=== PATIENT | male | born 1980 | race Hispanic/Latino ===

== ENCOUNTER 2023-01-10 07:43 | Inpatient (IN) | payer OTHER ==
[~2023-01-10] VITALS: Ht 162.6 cm; Wt 82.1 kg
[2023-01-10] VITALS (13 sets, daily range): BP systolic 110–143; BP diastolic 53–84
[2023-01-10] MEDS ORDERED: FAMOTIDINE 20MG VIAL IV ONE (08:00)
[2023-01-10] MEDS ORDERED: 0.9%NACL 1000ML 1,000 ML IV SCH ×2 (08:00→10:00)
[2023-01-10] MEDS ORDERED: ONDANSETRON 4MG INJ IVP ONE (08:00)
[2023-01-10 08:15] LABS: ABG BASE EXCESS -20.8 mmol/L (-2.0-3.0); ABG HCO3 4.7 mmol/L (21.0-28.0); ABG OXYGEN SATURATION 98.1 % (95.0-99.0); ABG PCO2 < 15 mmHg (35-48)
[2023-01-10 08:36] LABS: BASOPHILS % (AUTO) 0.4 % (0.0-5.0); EOSINOPHILS % (AUTO) 0.9 % (0.0-8.0); HEMATOCRIT 50.5 % (42-54); LYMPHOCYTES % (AUTO) 5.6 % (21.0-51.0); MEAN CORPUSCULAR HEMOGLOBIN 31.4 pg (27.0-33.0); MEAN CORPUSCULAR HGB CONC 34.3 g/dL (32.0-36.0); MEAN CORPUSCULAR VOLUME 91.7 fL (79-99); MONOCYTES % (AUTO) 4.1 % (3.0-13.0); NEUTROPHILS % (AUTO) 87.8 % (40.0-77.0); PLATELET COUNT (AUTO) 435 K/uL (130-400); RED BLOOD CELL COUNT(AUTO) 5.51 MIL/uL (4.50-6.20); RED CELL DISTRIBUTION WIDTH 12.7 % (11.0-15.5); WHITE BLOOD COUNT (AUTO) 14.4 K/uL (4.8-10.8)
[2023-01-10 08:53] LABS: ALANINE AMINOTRANSFERASE 33 U/L (12-78); ALBUMIN 4.3 g/dL (3.5-5.0); ASPARTATE AMINOTRANSFERASE 14 U/L (10-37); CREATINE KINASE, TOTAL 82 U/L (21-232); CREATININE 3.1 mg/dL (0.5-1.5); GLOMERULAR FILTR. RATE CALC 25 mL/min (>90); POTASSIUM 4.6 mmol/L (3.5-5.1); SODIUM SERUM 129 mmol/L (136-145); TOTAL PROTEIN, SERUM 8.3 g/dL (6.0-8.3); UREA NITROGEN, BLOOD 33 mg/dL (7-18)
[2023-01-10 08:59] LABS: CARBON DIOXIDE 10 mmol/L (21-32); CHLORIDE 78 mmol/L (101-111)
[2023-01-10 09:15] LABS: GLUCOSE,RANDOM 811 mg/dL (70-105)
[2023-01-10 09:27] LABS: AMPHET/METH SCREEN,URINE NEGATIVE (NEGATIVE); BARBITURATE SCREEN, URINE NEGATIVE (NEGATIVE); BENZODIAZEPINES SCREEN,URINE NEGATIVE (NEGATIVE); CANNABINOID SCREEN,URINE POSITIVE (NEGATIVE); COCAINE SCREEN,URINE NEGATIVE (NEGATIVE); OPIATE SCREEN,URINE NEGATIVE (NEGATIVE); PHENCYCLIDINE SCREEN,URINE NEGATIVE (NEGATIVE)
[2023-01-10] MEDS ORDERED: INSULIN REGULAR, HUMAN 3ML 100 UNIT in 0.9%NACL 100ML 99 ML IV PRN ×2 (09:30)
[2023-01-10 09:46] LABS: APPEARANCE,URINE CLEAR (CLEAR); BILIRUBIN,URINE NEGATIVE (NEGATIVE); COLOR,URINE LIGHT-YELLOW (YELLOW); GLUCOSE, URINE (UA) >=1000 mg/dL (NEGATIVE); KETONES,URINE 150 mg/dL (NEGATIVE); LEUKOCYTE ESTERASE ,URINE NEGATIVE Leu/uL (NEGATIVE); NITRATE,URINE NEGATIVE (NEGATIVE); PROTEIN,URINE 20 mg/dL (NEGATIVE); UROBILINOGEN,URINE 0.2 mg/dL (0.2-1.0)
[2023-01-10 09:51] LABS: MUCUS,URINE RARE LPF (None Seen); OTHER CASTS, URINE 3 /LPF (None Seen); SQUAMOUS EPITHELIAL CELL,UR RARE /HPF (0-2)
[2023-01-10] MEDS ORDERED: KETOROLAC 15MG/ML VIAL (15MG/ML) IV PRN (10:00)
[2023-01-10] MEDS ORDERED: MAGNESIUM 2GM PREMIX 50ML 50 ML IV SCH (10:00)
[2023-01-10] MEDS ORDERED: MORPHINE 2 MG SYG IVP PRN (10:00)
[2023-01-10] MEDS ORDERED: ONDANSETRON 4MG INJ IVP PRN (10:00)
[2023-01-10 10:15] LABS: CREATININE 2.5 mg/dL (0.5-1.5); POTASSIUM 4.3 mmol/L (3.5-5.1)
[2023-01-10] MEDS: INSULIN GLARGINE 100 UNITS/ML 10 ML VIAL SQ SCH ×2 (10:55→20:05)
[2023-01-10 14:21] LABS: CREATININE 2.7 mg/dL (0.5-1.5); POTASSIUM 3.3 mmol/L (3.5-5.1)
[2023-01-10] MEDS ORDERED: PHARMACY COMMUNICATION MISC SCH (16:00)
[2023-01-10] MEDS: INSULIN REGULAR, HUMAN 3ML 100 UNIT in 0.9%NACL 100ML 100 ML IV SCH ×2 (17:44)
[2023-01-10 18:04] LABS: CREATININE 2.2 mg/dL (0.5-1.5)
[2023-01-10 18:12] LABS: POTASSIUM 2.7 mmol/L (3.5-5.1)
[2023-01-10] MEDS ORDERED: KCL 20 MEQ ERTAB PO SCH (18:30)
[2023-01-10] MEDS: D5W-1/2 NS/20MEQ KCL 1,000 ML IV SCH ×2 (18:36→20:00)
[2023-01-10] MEDS: POTASSIUM CHLORIDE 10MEQ/100ML 100 ML IV PRN ×2 (20:00→21:54)
[2023-01-10 23:22] LABS: MAGNESIUM 2.1 mg/dL (1.80-2.40)
[2023-01-10 23:51] LABS: CREATININE 1.9 mg/dL (0.5-1.5); POTASSIUM 4.4 mmol/L (3.5-5.1)
[2023-01-10] MEDS ORDERED: NS-20 MEQ KCL 1000ML 1,000 ML IV ONE (23:53)
[2023-01-11] VITALS (24 sets, daily range): BP systolic 120–175; BP diastolic 55–84
[2023-01-11] MEDS: D5W-1/2 NS/20MEQ KCL 1,000 ML IV SCH ×2 (02:07→08:01)
[2023-01-11] MEDS: INSULIN REGULAR, HUMAN 3ML 100 UNIT in 0.9%NACL 100ML 100 ML IV SCH ×2 (03:33)
[2023-01-11 05:01] LABS: CREATININE 1.8 mg/dL (0.5-1.5); MAGNESIUM 2.4 mg/dL (1.80-2.40); POTASSIUM 3.8 mmol/L (3.5-5.1)
[2023-01-11] MEDS: INSULIN GLARGINE 100 UNITS/ML 10 ML VIAL SQ SCH ×2 (08:00→21:08)
[2023-01-11] MEDS: ENOXAPARIN SODIUM 40 MG/0.4 ML SYRINGE SQ SCH (08:01)
[2023-01-11] MEDS: LACTATED RINGERS 1000ML IV SCH (08:02)
[2023-01-11 10:03] LABS: CREATININE 1.4 mg/dL (0.5-1.5); POTASSIUM 3.5 mmol/L (3.5-5.1)
[2023-01-11] MEDS ORDERED: LACTATED RINGERS 1000ML IV ONE (10:30)
[2023-01-11] MEDS: INSULIN HUMULIN R 100 UNIT/ML 3ML SQ SCH ×3 (12:18→21:07)
[2023-01-11] MEDS: 0.9%NACL 1000ML 1,000 ML IV SCH ×2 (12:19→19:50)
[2023-01-12] VITALS: BP_SYST 126; BP_SYST 129; BP_DIAS 63; BP_DIAS 75
[2023-01-12] MEDS: 0.9%NACL 1000ML 1,000 ML IV SCH ×4 (02:10→22:53)
[2023-01-12] MEDS: INSULIN HUMULIN R 100 UNIT/ML 3ML SQ SCH ×4 (06:33→22:56)
[2023-01-12 07:30] VITALS: BP 139/93
[2023-01-12] MEDS: LACTATED RINGERS 1000ML IV SCH ×2 (08:00→21:00)
[2023-01-12] MEDS: ENOXAPARIN SODIUM 40 MG/0.4 ML SYRINGE SQ SCH (08:14)
[2023-01-12 08:51] LABS: POTASSIUM 2.8 mmol/L (3.5-5.1)
[2023-01-12] MEDS ORDERED: POTASSIUM CHLORIDE 10% ELIXIR 20 MEQ/15 ML UDCUP PO PRN (09:30)
[2023-01-12] MEDS ORDERED: POTASSIUM CHLORIDE 20MEQ/100ML 100 ML IV PRN (09:30)
[2023-01-12] MEDS ORDERED: LIDOCAINE HCL-MPF 1% 2ML VIAL IV PRN (09:30)
[2023-01-12] MEDS ORDERED: KCL 20 MEQ ERTAB PO ONE (09:43)
[2023-01-12] MEDS: KCL 20 MEQ ERTAB PO PRN ×4 (09:57→15:07)
[2023-01-12 11:22] VITALS: BP 131/77
[2023-01-12 15:30] VITALS: BP 141/80
[2023-01-12] MEDS: INSULIN HUMULIN 70/30 100 UNIT/ML 3ML SQ SCH (16:43)
[2023-01-12 19:00] VITALS: BP 124/75
[2023-01-13] VITALS: BP 137/78
[2023-01-13] MEDS: 0.9%NACL 1000ML 1,000 ML IV SCH ×4 (03:50→21:12)
[2023-01-13 04:00] VITALS: BP 142/75
[2023-01-13] MEDS: INSULIN HUMULIN R 100 UNIT/ML 3ML SQ SCH ×4 (06:29→20:19)
[2023-01-13] MEDS: INSULIN HUMULIN 70/30 100 UNIT/ML 3ML SQ SCH ×2 (06:49→16:21)
[2023-01-13 08:00] VITALS: BP 122/80
[2023-01-13] MEDS: ENOXAPARIN SODIUM 40 MG/0.4 ML SYRINGE SQ SCH (09:00)
[2023-01-13 10:14] LABS: CREATININE 0.8 mg/dL (0.5-1.5); POTASSIUM 3.1 mmol/L (3.5-5.1)
[2023-01-13] MEDS: KCL 20 MEQ ERTAB PO PRN ×3 (10:41→16:33)
[2023-01-13 12:00] VITALS: BP 134/81
[2023-01-13 16:00] VITALS: BP 126/84
[2023-01-13 20:06] VITALS: BP 133/77
[2023-01-14 00:10] VITALS: BP 126/76
[2023-01-14 03:59] VITALS: BP 149/87
[2023-01-14] MEDS: 0.9%NACL 1000ML 1,000 ML IV SCH (04:40)
[2023-01-14 05:48] LABS: BASOPHILS % (AUTO) 0.3 % (0.0-5.0); EOSINOPHILS % (AUTO) 0.5 % (0.0-8.0); HEMATOCRIT 31.7 % (42-54); LYMPHOCYTES % (AUTO) 19.5 % (21.0-51.0); MEAN CORPUSCULAR HEMOGLOBIN 31.9 pg (27.0-33.0); MEAN CORPUSCULAR HGB CONC 36.6 g/dL (32.0-36.0); MEAN CORPUSCULAR VOLUME 87.1 fL (79-99); MONOCYTES % (AUTO) 10.5 % (3.0-13.0); NEUTROPHILS % (AUTO) 67.9 % (40.0-77.0); NUCLEATED RED BLOOD CELLS 0.5 % (0.0-0.19); PLATELET COUNT (AUTO) 181 K/uL (130-400); RED BLOOD CELL COUNT(AUTO) 3.64 MIL/uL (4.50-6.20); RED CELL DISTRIBUTION WIDTH 12.9 % (11.0-15.5); WHITE BLOOD COUNT (AUTO) 10.7 K/uL (4.8-10.8)
[2023-01-14 06:01] LABS: CREATININE 0.8 mg/dL (0.5-1.5); PHOSPHORUS 2.7 mg/dL (2.5-4.9); POTASSIUM 3.5 mmol/L (3.5-5.1)
[2023-01-14] MEDS: KCL 20 MEQ ERTAB PO PRN ×2 (06:23→09:26)
[2023-01-14] MEDS: INSULIN HUMULIN 70/30 100 UNIT/ML 3ML SQ SCH (06:29)
[2023-01-14] MEDS: INSULIN HUMULIN R 100 UNIT/ML 3ML SQ SCH (06:29)
[2023-01-14 08:00] VITALS: BP 136/82
[2023-01-14] MEDS: ENOXAPARIN SODIUM 40 MG/0.4 ML SYRINGE SQ SCH ×2 (09:00→09:26)
[2023-01-14] MEDS ORDERED: HUM10VIA SQ (13:06)
== END 2023-01-14 12:50 | disposition home or self-care (01) | DRG 638 ==
LOC: EDH 07:43 → EDHIP 07:44 → 2BH 11:55 → 3AH 01-11 11:23 → 4AH 01-13 18:26
PROVIDERS: ADMIT Internal Medicine; ATTEND Internal Medicine
DX: E11.10 Type 2 diabetes mellitus with ketoacidosis without coma (principal); N17.9 Acute kidney failure, unspecified; K76.0 Fatty (change of) liver, not elsewhere classified; F12.90 Cannabis use, unspecified, uncomplicated; K57.90 Diverticulosis of intestine, part unspecified, without perforation or abscess without bleeding; D72.829 Elevated white blood cell count, unspecified; E66.09 Other obesity due to excess calories; Z79.84 Long term (current) use of oral hypoglycemic drugs; Z91.199 Patient's noncompliance with other medical treatment and regimen due to unspecified reason; Z99.2 Dependence on renal dialysis; Z68.31 Body mass index [BMI] 31.0-31.9, adult
CPT/HCPCS: 36415; 36600; 71045; 74176; 80048; 80053; 80305; 81001; 82010; 82550; 82803; 82948; 83036; 83735; 84100; 85025; 93005; 99291; G0378; J1650; J1815; J2405; J3480; J3490; J7030

== ENCOUNTER 2025-07-26 11:35 | Emergency (ER) | payer BC ==
[~2025-07-26] VITALS: Ht 165.1 cm; Wt 80.7 kg
[~2025-07-26 11:35] MED LIST: HUM10VIA SQ
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
[2025-07-26] MEDS: HYDROcodone/APAP 5/325 1 TAB TABLET PO ONE (12:05)
--- NOTE | 2025-07-26 12:35 | NUR ---
SLING PLACED PER MD REQUEST
--- NOTE | 2025-07-26 12:56 | HMCIMG ---
SHOULDER COMP 2+VWS RT REASON: F RIGHT LATERAL ANTERIOR SHOULDER PAIN WITH DECREASED RANGE OF MOTION TECHNIQUE: 2 views were obtained. FINDINGS: There is no evidence of fracture or dislocation. There is no joint effusion. The soft tissues appear unremarkable. There is no evidence of a radiopaque foreign body. The clavicle is dislocated in relation to the acromion. IMPRESSION: Right shoulder is an anatomical position. There is cephalad dislocation of the left clavicle tip in relation to the acromion.
[2025-07-26] MEDS ORDERED: TRAM-543 PO (13:31)
[2025-07-26 13:46] VITALS: BP 118/79; PULSE 80; RESP 16; TEMP 98.1; O2SAT 95
== END 2025-07-26 13:52 | disposition home or self-care (01) ==
LOC: EDH 11:35
DX: S43.004A Unspecified dislocation of right shoulder joint, initial encounter (principal); E11.9 Type 2 diabetes mellitus without complications; V87.8XXA Person injured in other specified noncollision transport accidents involving motor vehicle (traffic), initial encounter; Y93.89 Activity, other specified; Y92.89 Other specified places as the place of occurrence of the external cause; Y99.8 Other external cause status
CPT/HCPCS: 29105; 73030; 99283